=== PATIENT | male | born 1965 | race Caucasian/White ===

== ENCOUNTER 2020-01-16 14:51 | Outpatient (CLI) | payer OTHER ==
--- NOTE | 2020-01-16 15:12 | RAD ---
Exam: XR Knee Lt 2 View HISTORY: Disability exam. COMPARISON: None FINDINGS: No acute fracture, dislocation, or other acute osseous abnormality is identified. There is a corticated osseous density seen anterior to the tibial tuberosity likely related prior [place] slaughters disease. There does however appear to be mild subcutaneous soft tissue swelling anterior to the level of the patellar tendon. IMPRESSION: No acute osseous abnormality is identified.
--- NOTE | 2020-01-16 15:15 | RAD ---
EXAM: XR Lumbar Spine 2 Or 3 View PROVIDED CLINICAL HISTORY: The stability exam COMPARISON: None FINDINGS: There are 5 nonrib-bearing lumbar-type vertebral bodies. There is narrowing of the intervertebral dis c spaces at the L3-4 and L5-S1 levels with vacuum phenomenon seen in the intervertebral disc spaces at these levels. Scattered osteophytes and facet degenerative changes are seen in the lumbar spine. N o fracture or subluxation is seen. Vascular calcifications are seen in the abdominal aorta and involving the iliac arteries. Calcification is seen overlying the region of the lower pole left renal shadow which may represent a left renal calculus measuring 5 mm. IMPRESSION: Degenerative changes in the lumbar spine. No fracture or subluxation is appreciated. Suggestion of a 5 mm calculus inferior pole left kidney
== END 2020-01-16 14:52 | disposition home or self-care (01) ==
LOC: BICRAD 14:51
PROVIDERS: ATTEND Internal Medicine
DX: Z02.71 Encounter for disability determination (principal); M47.816 Spondylosis without myelopathy or radiculopathy, lumbar region
CPT/HCPCS: 72100